=== PATIENT | male | born 1980 | race Caucasian/White ===

== ENCOUNTER 2017-02-11 12:06 | Emergency (ER) | payer OTHER ==
[~2017-02-11] VITALS: Ht 172.7 cm; Wt 72.7 kg
[~2017-02-11 12:06] MED LIST: NOMED
[2017-02-11 12:28] VITALS: BP 121/77; PULSE 82; RESP 16; O2SAT 100
--- NOTE | 2017-02-11 14:04 | ED.REPORT ---
HPI-Extremity Problem Upper Date of Service Feb 11, 2017 ED Provider: Moe Shoemaker PA-C Antonio is a 36-year-old male with history of IV heroin abuse presenting to the emergency department for infections in his arms. Patient reports pain, redness and swelling and bilateral forearms near sites of injection. States he is unable to grasp things well with his left hand. Denies fever, shaking chills, abdominal pain, vomiting. Nursing Notes Stated Complaint: ARMS INFECTION Chief Complaint: Skin Rash/Abscess Nursing Notes Reviewed: Yes Allergies: Coded Allergies: No Known Allergies (Unverified Allergy, Unknown, 02/11/17) Scheduled Sulfamethoxazole/Trimeth 800-160 mg (Bactrim DS) 1 Each Tablet 2 TABLET PO BID Miscellaneous Medications No Historical Medication (No Historical Medication) Ea General Time Seen by MD: 13:29 Chief Complaint Other (bilateral arm infections) Past Medical History Past Medical History Denies Social History Drug Use: IV drugs (heroin) Review of Systems Review of Systems Note: Negative unless stated otherwise in history of present illness Physical Exam General: Well appearing, well developed, well nourished, no acute distress. Left forearm: Redness, heat, swelling and tenderness on the palmar aspect of the distal forearm. Left hand: The patient is able to actively flex and extend the digits partially. Severe pain with passive extension of phalanges. Brisk capillary refill in distal phalanx. Radial pulse 2+. Right forearm: 3 cm area of bright redness, heat, swelling and tenderness on the palmar aspect of the distal forearm. 2 areas of firm swelling measuring approximately 3 cm on the proximal forearm, associated with mild tenderness, redness. No fluctuance, discharge or pointing abscess. Right hand: The patient is able to actively flex and extend the digits fully. Brisk capillary refill in distal phalanx. Radial pulse 2+.Head: Atraumatic, normocephalic. Eyes: No scleral icterus or injection. No discharge. Vision grossly intact. ENT: Voice clear, hearing grossly intact. Respiratory: No respiratory distress, no increased work of breathing. Speaks in complete sentences. Skin: Warm and dry. Neurological: Grossly nonfocal. Psychological: alert and oriented. Speech appropriate, linear and logical. Behavior appropriate. Initial Vital Signs Vital Signs (First) Date Time Temp Pulse Resp B/P Pulse Ox O2 Delivery O2 Flow Rate FiO2 02/11/17 12:28 36.6 82 16 121/77 100 Room Air Re-Eval/Medical Decision Med Decision/Clinical Course 36-year-old male with a history of IV heroin abuse since emergency Department for bilateral infections of his arm. Reports redness, swelling, pain bilaterally. Reports weakness in his left hand. Visual examination reveals redness and swelling at the distal palmar aspect of bilateral forearms, with a small bright red patch on his left forearm and a larger more diffuse red patch on his left forearm. These areas are quite tender. There are additionally 2 areas of firm swelling on his proximal right forearm. No fluctuance or discharge is noted. Patient is able to flex and extend the digits on both hands though less so on the left, range of motion is limited due to pain. Passive extension is quite painful to the patient. Brisk capillary refill is intact in the distal phalanges. His vitals are within normal limits and the physical examination is otherwise benign. I discussed this case with Dr. Calle, who evaluated and examined the patient. He finds the examination reassuring against compartment syndrome or tenosynovitis. Advised to CBC, CMP, lactate and 20 mg oxycodone by mouth. Plan to discharge with high-dose Bactrim if labs returned reassuring. Lab has difficulty requiring a sample and the patient climbs further attempts. I discussed my concerns regarding sepsis with the patient advised that I could not say with any certainty that he was safely the hospital without further investigation. Patient acknowledges this and requests to be discharged with antibiotics. I advised that this would be AGAINST MEDICAL ADVICE, and could result in Sears complications including disability and . Patient acknowledges this and wishes to be discharged. Provided prescription for Bactrim DS 2 tab by mouth twice a day for 10 days. Advised primary care follow- up, provided with return precautions. I made clear that he is welcome to return any time to continue investigation. Patient verbalizes understanding of and consent to the plan. Discharge & Departure Impression: Primary Impression: Cellulitis Site of cellulitis: extremity Site of cellulitis of extremity: upper extremity Laterality: unspecified laterality Qualified Code: L03.119 - Cellulitis of unspecified part of limb Additional Impression: Heroin abuse Disposition: AGAINST MEDICAL ADVICE Discharge Condition All VS Reviewed: Yes Condition: Stable Patient Instructions: Cellulitis (ED) Additional Instructions: Evaluation for infection in the emergency department include interview and physical examination which suggest that you in fact have cellulitis in both your arms. You have declined further attempts to draw blood for testing. Without further testing, I cannot say with any certainty how dangerous this infection is. My concern is that it is a severe infection that could lead to permanent disability or . You have stated that you understand this but that you wish to be discharged from the hospital AGAINST MEDICAL ADVICE. I will write a prescription for Bactrim DS. Please take 2 tablets twice a day for the next 10 days. Follow-up with your primary care provider in 2-3 days to be sure this is progressing as expected. You are welcome to return to the emergency department at any time for further evaluation. Return to emergency department if you notice any new or worsening symptoms including fever, feeling ill, racing heart, increasing redness, swelling, pain. Additionally provided with contact information for ideal option. Please contact them for assistance in quitting heroin. Referrals: OTHER,PHYSICIAN Dr Hernandez [facility] Provider for [facility]: Jluis Calle MD, Seth PA-C Feb 11, 2017 14:04
[2017-02-11] MEDS ORDERED: SULF1TAB7 PO (14:59)
[2017-02-11 15:11] VITALS: BP 135/82; PULSE 85; RESP 16; O2SAT 100
== END 2017-02-11 15:12 | disposition left against medical advice (07) ==
LOC: SED 12:06
DX: L03.113 Cellulitis of right upper limb (principal); L03.114 Cellulitis of left upper limb; F11.10 Opioid abuse, uncomplicated; Z53.29 Procedure and treatment not carried out because of patient's decision for other reasons